=== PATIENT | female | born 2000 | race Caucasian/White ===

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

== ENCOUNTER 2021-07-04 07:54 | Outpatient (CLI) | payer OTHER, SELFPAY ==
--- NOTE | 2021-07-04 08:10 | ECHO_ITS ---
Patient Info Name: Rehana Gross Age: 21 years : 2000 Gender: Female Ht: 64 in Wt: 220 lbs BSA: 2.17 m2 HR: 70 bpm BP: 128 / 90 mmHg Technical Quality: Poor Exam Date: 07/04/2021 8:29 AM Exam Location: [facility] Patient Status: Outpatient Admit Date: 07/04/2021 Staff Ordering Physician: Dinesh Canada DO Tele Marketing Executive: Jerman Pillai RDCS, RT Attending Provider: Dinesh Canada DO Referring Physician: Dread MATTA; Exam Type: CA echo doppler color flow Study Info Indications I47.2 - Ventricular tachycardia Complete two-dimensional, color flow and Doppler transthoracic echocardiogram is performed. Strain analysis performed. Summary 1. Technically suboptimal study due to poor sonographic images. 2. Complete two-dimensional, color flow and Doppler transthoracic echocardiogram is performed. 3. Left ventricular chamber dimension is normal. 4. Left ventricular systolic function is normal, estimated at 55-60%. 5. The left ventricular diastolic function is normal. 6. E/e '4 is not elevated. 7. Global longitudinal strain is abnormal at -15.4%. 8. There is mild tricuspid valve regurgitation. 9. No pulmonary hypertension, estimated pulmonary arterial systolic pressure is 29 mmHg. Left Ventricle E/e '4 is not elevated. Global longitudinal strain is abnormal at -15.4%. Left ventricular chamber dimension is normal. Left ventricular systolic function is normal, estimated at 55-60%. The left ventricular diastolic function is normal. Technically suboptimal study due to poor sonographic images. Right Ventricle Right ventricular systolic function is normal based on normal TAPSE 2.5 cm. Right ventricular chamber dimension is not well visualized. Left Atria Left atrial chamber dimension is normal. Right Atria Right atrial chamber dimension is normal. Aortic Valve The aortic valve is trileaflet. There is no aortic valve stenosis. There is no aortic valve regurgitation. Pulmonic Valve There is no pulmonic regurgitation. Mitral Valve There is no mitral valve stenosis. There is no mitral valve regurgitation. Tricuspid Valve There is mild tricuspid valve regurgitation. No pulmonary hypertension, estimated pulmonary arterial systolic pressure is 29 mmHg. Pericardium/Pleural There is no pericardial effusion. Inferior Vena Cava Normal inferior vena cava with >50% collapse upon inspiration consistent with normal right atrial pressure, 5 mmHg. Aorta The aortic root size at the sinus of Valsalva is normal. Left Ventricular Outflow Tract Name Value Normal LVOT 2D LVOT Diameter 2.0 cm LVOT Doppler LVOT Peak Gradient 3 mmHg LVOT Mean Gradient 2 mmHg LVOT VTI 20 cm LVOT VTI/AV VTI Ratio 0.8 LVOT Stroke Volume 63 ml LVOT CO 4.5 l/min LVOT CI 2.1 l/min/m2 Mitral Valve Name
== END 2021-07-04 07:55 | disposition home or self-care (01) ==
LOC: ANHCARD 07:56
PROVIDERS: PCP Pediatrics; Visit Provider Internal Medicine Cardiovascular Disease
DX: R00.0 Tachycardia, unspecified (principal)
CPT/HCPCS: 93306

== ENCOUNTER 2023-12-23 17:20 | Emergency (ER) | payer BC, SELFPAY ==
[2023-12-23 17:21] VITALS: BP 131/62; PULSE 73; RESP 16; TEMP 36.5; O2SAT 100
--- NOTE | 2023-12-23 17:47 | ED_ITS ---
HPI - Head Injury General Chief complaint: Head Injury Stated complaint: head injury Time Seen by Provider: 12/23/23 17:26 History of Present Illness HPI Narrative: patient presenting with head injury, she had been looking at her phone when she actually walked into a bar, had no loss of consciousness, has mild headache and some nausea. No emesis , no focal numbness or weakness or difficulty with speech Related Data Home Medications Medication Instructions Recorded Confirmed metformin 500 mg tablet 500 mg PO BID 05/20/23 11/19/23 spironolactone 100 mg tablet 100 mg PO BID 05/20/23 11/19/23 Allergies Allergy/AdvReac Type Severity Reaction Status Date / Time nitrofurantoin AdvReac Mild Nausea and Verified 11/19/23 11:14 [From Macrobid] Vomiting Review of Systems Review of Systems: All systems reviewed & are unremarkable except as noted in HPI and below PMFSH Past Medical History Medical History Dysuria FH: diabetes mellitus Hx of thyroid cyst Surgical History Surgical History Tympanic tube insertion Family History Family History Other Alcoholism Depression Anxiety Hypertension Diabetes mellitus Sibling Asthma Diabetes mellitus Father Diabetes mellitus Hyperthyroidism Mother Diabetes mellitus PCOS (polycystic ovarian syndrome) Intracranial hypertension Non-alcoholic fatty liver disease Grandparent Diabetes mellitus Cerebrovascular accident End stage renal disease on dialysis due to type 2 diabetes mellitus CHF (congestive heart failure) Sibling Hypoplastic left heart GERD (gastroesophageal reflux disease) Scoliosis Leukoencephalopathy Social History Social History Smoking status: Never smoker Second hand tobacco smoke exposure: No Alcohol intake: current Alcohol use details: seldom; socially Substance use: never Substance use type: does not use Do You Feel Safe in your Home?: Yes Lack of Transportation: No Lack of Food: Never True Current Housing: I Have Housing Concerned About Future Housing: No Difficulty Paying Gas/Electric Bills: No Difficulty Paying for Meds: No Currently Unemployed: No Education: Associate Degree Difficulty w/ Childcare or Family Care: Decline to Answer Gender identity (if verbalized by the patient): Female Sexual Orientation (if Verbalized by the Patient): Straight or Heterosexual Spiritual care concerns: No Agree to blood products: Yes Exam Narrative: EXAMINATION OF ORGAN SYSTEMS/BODY AREAS: Constitutional: Vital signs per nursing GENERAL:[No acute distress, non-toxic appearing.] HEAD: some slight tenderness to but no scalp hematoma EYES: EOMI, conjunctiva normal, PERRL ENT: Hearing grossly intact LUNGS: Nonlabored breathing. HEART: [Regular rate and rhythm] ABD: [Soft], [nontender to palpation] EXT: Normal range of motion SKIN: [No rashes or lesions.] NEURO: [Alert and oriented x 3. No gross focal sensory or strength deficits.] no facial droop. Able to ambulate with steady gait, and on tiptoes. Clear speech. PSYCH: Normal affect Course Vital Signs Vital signs: Vital Signs Temperature 97.7 F 12/23/23 17:21 Pulse Rate 73 12/23/23 17:21 Respiratory Rate 16 12/23/23 17:21 Blood Pressure 131/62 12/23/23 17:21 Pulse Oximetry 100 12/23/23 17:21 Oxygen Delivery Room Air 12/23/23 17:21 Temperature 97.7 F 12/23/23 17:21 Pulse Rate 73 12/23/23 17:21 Respiratory Rate 16 12/23/23 17:21 Blood Pressure 131/62 12/23/23 17:21 Pulse Oximetry 100 12/23/23 17:21 Oxygen Delivery Room Air 12/23/23 17:21 MDM - Head Injury MDM Narrative Medical decision making narrative: 23-year-old female presents after head injury, she is very well-appearing here, no indication for CT per [place] [facility] rules, stable for discharge after did given nausea medications and pain medication with return precautions and follow-up instructions to PCP with concussion precautions; patient and mother at bedside agreeable to this plan Discharge Plan Discharge Clinical Impression: Concussion without loss of consciousness Patient Disposition: Home, Self-Care Condition: Stable Instructions: Concussion (ED) Additional Instructions: Please follow up with your doctor; you can always return for any further issues. Prescriptions: No Action metformin 500 mg tablet 500 mg PO BID spironolactone 100 mg tablet 100 mg PO BID sertraline 100 mg tablet 100 mg PO DAILY Qty: 90 1RF Follow-up/Referrals: Keisha Osuna MD [Primary Care Provider] -
[2023-12-23] MEDS: ACETAMINOPHEN 325 MG TABLET 650 MG PO (17:49)
[2023-12-23] MEDS: ONDANSETRON HCL ODT 4 MG TABLET PO (17:49)
== END 2023-12-23 18:13 | disposition home or self-care (01) ==
PROVIDERS: Emergency Provider Emergency Medicine; PCP Family Medicine
DX: S06.0X0A Concussion without loss of consciousness, initial encounter (principal); Z79.84 Long term (current) use of oral hypoglycemic drugs; W22.09XA Striking against other stationary object, initial encounter
CPT/HCPCS: 99283; A9270

== ENCOUNTER 2024-08-21 10:22 | Outpatient (CLI) | payer BC, SELFPAY ==
--- NOTE | ~2024-08-21 | US_ITS ---
EXAM: ABDOMEN ULTRASOUND HISTORY: R74.8 - Abnormal levels of other serum enzymes COMPARISON: None FINDINGS: LIVER: The liver is increased in echogenicity and unremarkable in size. The contour of the liver surface is smooth. The portal vein is patent, demonstrating hepatopedal flow. GALLBLADDER: No stones are identified within the gallbladder, which is otherwise unremarkable. No gallbladder wall thickening or pericholecystic fluid. BILE DUCTS: Common bile duct measures 3.2mm. PANCREAS: Limited evaluation of the pancreas secondary to overlying bowel gas IMPRESSION: Fatty infiltration of the liver. Reviewed, dictated and finalized at location A.
== END 2024-08-21 10:23 | disposition home or self-care (01) ==
LOC: MICIMG 10:22
PROVIDERS: PCP Family Medicine; Visit Provider Student in an Organized Health Care Education/Training Program
DX: K76.0 Fatty (change of) liver, not elsewhere classified (principal); R74.8 Abnormal levels of other serum enzymes
CPT/HCPCS: 76705